=== PATIENT | male | born 1955 | race Caucasian/White ===

== ENCOUNTER 2016-10-21 18:10 | Emergency (ER) | payer OTHER ==
[~2016-10-21] VITALS: Ht 167.6 cm; Wt 81.6 kg
[2016-10-21 18:12] VITALS: BP 141/88; PULSE 91; RESP 18; TEMP 97.1; O2SAT 95
--- NOTE | 2016-10-21 19:20 | NUR ---
Patient to ER bed 3 to gown for evaluation. Side rails up. Report given to Say LEVY.
[2016-10-21 19:23] LABS: BASOPHILS % (AUTO) 0.7 % (0.0-2.0); EOSINOPHILS # (AUTO) 0.7 K/uL (0.0-0.4); EOSINOPHILS % (AUTO) 11.1 % (0.0-4.0); HEMOGLOBIN 15.3 g/dL (14.0-18.0); LYMPHOCYTES # (AUTO) 1.5 K/uL (1.0-5.5); LYMPHOCYTES % (AUTO) 22.4 % (20.5-51.5); MEAN CORPUSCULAR HEMOGLOBIN 29 pg (27-31); MEAN CORPUSCULAR HGB CONC 33 % (32-36); MEAN CORPUSCULAR VOLUME 90 fL (79.0-98.0); MONOCYTES # (AUTO) 0.6 K/uL (0.0-1.0); MONOCYTES % (AUTO) 9.4 % (1.7-9.3); NEUTROPHILS # (AUTO) 3.9 K/uL (1.8-7.7); NEUTROPHILS % (AUTO) 56.4 % (40.0-70.0); PLATELET COUNT (AUTO) 200 K/uL (130-430); RED BLOOD CELL COUNT(AUTO) 5.26 MIL/uL (4.2-6.2); RED CELL DISTRIBUTION WIDTH 12.7 % (9.0-15.0); WHITE BLOOD COUNT (AUTO) 6.7 K/uL (4.8-10.8)
[2016-10-21 19:30] LABS: PROTHROMBIN TIME 10.9 SECS (9.5-12.5)
[2016-10-21 19:31] LABS: CALCIUM 8.7 mg/dL (8.4-11.0); CREATININE 0.94 mg/dL (0.55-1.30); POTASSIUM 3.9 mmol/L (3.5-5.1)
[2016-10-21 19:37] LABS: ALBUMIN 3.8 g/dL (3.4-4.8); TOTAL BILIRUBIN 0.3 mg/dL (0.0-1.0); TOTAL PROTEIN, SERUM 7.8 g/dL (6.4-8.3)
--- NOTE | 2016-10-21 19:40 | NUR ---
Pt brought to ED by family member with c/o SOB, trouble taking air in, feeling hot and fever. A&oX4, denies N/V/D, no accessory muscle use noted. WIll continue to monitor
--- NOTE | 2016-10-21 19:55 | NUR ---
MD Harry at bedside examining pt
[2016-10-21] MEDS ORDERED: IPRATROPIUM/ALBUTEROL SULFATE 3 ML AMPUL.NEB INH ONE (20:15)
[2016-10-21] MEDS ORDERED: AZITHROMYCIN 250 MG TABLET PO ONE (20:15)
[2016-10-21] MEDS ORDERED: methylPREDNISolone SOD SUCC/PF 62.5 MG/ML VIAL IM ONE (20:15)
--- NOTE | 2016-10-21 20:48 | NUR ---
pt medicated per md order
[2016-10-21 21:10] VITALS: BP 136/78; PULSE 88; RESP 16; TEMP 97.1; O2SAT 99
--- NOTE | 2016-10-21 21:10 | NUR ---
Patient given written and verbal discharge instructions and verbalizes understanding. ER MD Harry discussed with patient the results and treatment provided. Patient in stable condition. ID arm band removed. Rx of prednisone, amoxicillin, albuterol given. Patient educated on pain management and to follow up with PMD. Pain Scale 0/10 Opportunity for questions provided and answered.
== END 2016-10-21 21:10 | disposition home or self-care (01) ==
LOC: SED 18:10
DX: J20.9 Acute bronchitis, unspecified (principal); R03.0 Elevated blood-pressure reading, without diagnosis of hypertension
CPT/HCPCS: 36415; 71020; 80053; 83880; 84484; 85025; 85610; 85730; 93005; 94640; 96372; 99285; J2930; Q0144

== ENCOUNTER 2021-09-11 17:32 | Emergency (ER) | payer OTHER ==
[~2021-09-11] VITALS: Ht 165.1 cm; Wt 81.6 kg
[2021-09-11 18:01] VITALS: BP_SYST 153
--- NOTE | 2021-09-11 19:49 | NUR ---
Patient to ER bed H1 to gown for evaluation. Side rails up.
--- NOTE | 2021-09-11 20:41 | NUR ---
66 YR OLD AOX4, SOMALI SPEAKING AMBULATORY PT WITH COMPLAINT OF HEAD LACERATION DUE TO AN OBJECT FALLING ON HIS HEAD WHILE HE WAS FIXING A TRAILER. PT DENIES ANY KNOCK OUT, BUT REPORTS DIZZYNESS WITH HEADACHE. PT NOTED TO HAVE A LACERATION NOTED WITH MILD ACTIVE BLEEDING. PT WOUND IRRIGATED WITH NORMAL SALINE. UNABLE TO DETERMINE HEALTH HISTORY. WILL MONITOR NEED
[2021-09-11] MEDS ORDERED: LIDOCAINE/EPI 1% 1:100000 20 ML VIAL INJ ONE (22:00)
--- NOTE | 2021-09-11 22:12 | NUR ---
ER at bedside examining patient.
--- NOTE | 2021-09-11 22:14 | NUR ---
MD DISCUSSED PLAN OF CARE WITH PT AND OBTAINED VERBAL CONSENT FROM PT TO REPAIR HEAD WOUND. RISKS WERE DISCUSSED, INCLUDING BLEEDING, AND HEAD STRUCTURE DAMAGE. PT WAS POSITION IN HIGH FOWER'S POSITION, 10 ML OF 1% LIDOCAINE WAS INJECTED AND USED ANESTHETIC FDOR . REPAIRED HEAD WOUND USING FOUR MUNIR, PT TOLERATED PROCEDURE WELL. PT AWAITING DISPOSITION
[2021-09-11] MEDS ORDERED: BACITRACIN 1 GM OINT TP ONE ×2 (22:30→22:45)
[2021-09-11 22:43] VITALS: BP_SYST 153
--- NOTE | 2021-09-11 22:44 | NUR ---
Patient given written and verbal discharge instructions and verbalizes understanding. Dr. Logan discussed with patient the results and treatment provided. Patient in stable condition. ID arm band removed. Patient educated on pain management and to follow up with PMD. Pain Scale 0. Opportunity for questions provided and answered.
== END 2021-09-11 22:44 | disposition home or self-care (01) ==
LOC: SED 17:32
DX: S01.01XA Laceration without foreign body of scalp, initial encounter (principal); W20.8XXA Other cause of strike by thrown, projected or falling object, initial encounter; Y93.89 Activity, other specified; Y92.89 Other specified places as the place of occurrence of the external cause; Y99.8 Other external cause status
CPT/HCPCS: 70450-TC; 76376; 99284

== ENCOUNTER 2022-10-11 21:48 | Emergency (ER) | payer OTHER ==
[~2022-10-11] VITALS: Ht 165.1 cm; Wt 81.6 kg
[2022-10-11 22:00] VITALS: BP_SYST 148
[2022-10-11] MEDS ORDERED: ERYTHROMYCIN BASE 0.5% EYE OINT...G. OP ONE (22:30)
[2022-10-11] MEDS ORDERED: ERYEYE RIGHT EYE (22:36)
[2022-10-11 22:50] VITALS: BP_SYST 133
== END 2022-10-11 22:50 | disposition home or self-care (01) ==
LOC: SED 21:48
DX: H00.011 Hordeolum externum right upper eyelid (principal); H10.9 Unspecified conjunctivitis; R05.9 Cough, unspecified; R51.9 Headache, unspecified; I10 Essential (primary) hypertension; Z79.899 Other long term (current) drug therapy
CPT/HCPCS: 99283